=== PATIENT | male | born 1995 | race Caucasian/White ===

== ENCOUNTER 2019-01-03 12:46 | Emergency (ER) | payer BC, OTHER ==
[~2019-01-03] VITALS: Ht 182.9 cm; Wt 249.5 kg
[~2019-01-03 12:46] MED LIST: LISINOPRIL10 MG PO; OMEPRAZOLE40 MG PO
--- OUTSIDE RECORDS SUMMARY | 2019-01-03 12:48 | XMS REPORT | Continuity of Care Document ---
Author Author [facility] Interface Address Unknown Phone Unavailable Problems Problem Status Onset Date Classification Date Reported Comments Source Tachycardia 11/08/2017 Diagnosis 11/08/2017 [facility] Body mass index 40+ - severely obese 11/08/2017 Diagnosis 11/08/2017 [facility] Hypertensive disorder 11/08/2017 Diagnosis 11/08/2017 [facility] Influenza-like symptoms 11/08/2017 Diagnosis 11/08/2017 [facility] Acute bronchitis 11/08/2017 Diagnosis 11/08/2017 [facility] Influenza-like Symptoms 11/08/2017 Problem 11/08/2017 [facility] Body Mass Index 40+ - Severely Obese 11/08/2017 Problem 11/08/2017 [facility] Hypertensive Disorder Problem 11/08/2017 [facility] Asthma Problem 11/08/2017 [facility] Medications Medication Details Route Status Patient Instructions Ordering Provider Order Date Source Azithromycin 250 MG Oral Tablet azithromycin 250 mg tablet Take 2 tablets (500 mg) by oral route once daily for 1 day then 1 tablet (250 mg) by oral route once daily for 4 days Active [facility] benzonatate 200 MG Oral Capsule benzonatate 200 mg capsule Take 1 capsule 3 times a day by oral route as needed. Active [facility] Lisinopril 10 MG Oral Tablet lisinopril 10 mg tablet TAKE ONE (1) TABLET(S) BY MOUTH ONCE A DAY. Active [facility] Prednisone 20 MG Oral Tablet prednisone 20 mg tablet Take 1 tablet twice a day by oral route as directed for 6 days. Active [facility] 200 ACTUAT Albuterol 0.09 MG/ACTUAT Metered Dose Inhaler [ProAir] ProAir HFA 90 mcg/actuation aerosol inhaler Inhale 2 puffs every 4-6 hours by inhalation route as needed. Active [facility] Allergies, Adverse Reactions, Alerts Substance Category Reaction Severity Reaction type Status Date Reported Comments Source Immunizations Immunization Date Given Site Status Last Updated Comments Source Results Order Name Results Value Reference Range Date Interpretation Comments Source Influenza A negative 11/08/2017 [facility] Influenza B negative 11/08/2017 [facility] Vital Signs Vital Sign Value Date Comments Source Diastolic (mm Hg) 85 11/08/2017 [facility] Height 72 11/08/2017 [facility] Systolic (mm Hg) 124 11/08/2017 [facility] Weight 546 11/08/2017 [facility] Encounters Location Location Details Encounter Type Encounter Number Reason For Visit Attending Provider ADM Date DC Date Status Source [place] [id number] Katz, [facility] [address] [facility] [place] [address], Ph. [id number] Megan Katz 11/08/2017 [facility] Procedures Procedure Code Date Perfomer Comments Source Anesth Tympanotomy 97980 [facility] Removal of Adenoids 79005 [facility]
--- OUTSIDE RECORDS SUMMARY | 2019-01-03 12:48 | XMS REPORT | Encounter Summary ---
Author Organization Unknown Address [address] [place] [address] Phone [phone] Care Team Providers Care Interdisciplinary Professor Name Role Phone Diallo Cortes DO 3 [phone] Reason for Visit Medical Complaint Instructions 1. Acute bronchitis bronchitis: care instructions ProAir HFA 90 mcg/actuation aerosol inhaler azithromycin 250 mg tablet prednisone 20 mg tablet benzonatate 200 mg capsule patient follow up phone call 2. Influenza-like symptoms rapid flu (A+B) 3. Hypertensive disorder elevated blood pressure: care instructions 4. Body mass index 40+ - severely obese 5. Tachycardia Discussion Note Pt is in NAD; Verbalizes understanding of all instructions with no questions at this time. Plan of Care Patient Instructions Get clearance from PCP before starting these meds: Take fluticasone as needed for congestion. [place] one spray in each nostril twice a day. Take a warm, steamy shower, blow your nose thereafter, and spray in each nostril. Tilt your head up for about 10 seconds and breath through your mouth. Do not sniff or snort the medication in or else the medication will go to your throat and not be absorbed appropriately. Start Benzonatate for cough. Start ProAir Inhalers 2 puffs every 4-6 hrs as needed for shortness of breath/wheezing. Take Steroids as directed and with food to avoid GI discomfort. Start Azithromycin as directed. Take medications as prescribed and follow up with a PCP within 2-3 if symptoms worsen as discussed. In case of emergency call 911 or go to nearest ER. Recommend monitor BP at home and document, bring BP log to PCP for review. Recommend follow a low sodium/fat/carb diet and exercise as tolerated once symptoms improve. Reminders Provider Appointments None recorded. Lab Rapid Flu (A+B) 11/08/2017 [facility] Referral None recorded. Procedures None recorded. Surgeries None recorded. Imaging None recorded. Medications Name Start Date azithromycin 250 mg tablet Take 2 tablets (500 mg) by oral route once daily for 1 day then 1 tablet (250 mg) by oral route once daily for 4 days benzonatate 200 mg capsule Take 1 capsule 3 times a day by oral route as needed. lisinopril 10 mg tablet TAKE ONE (1) TABLET(S) BY MOUTH ONCE A DAY. prednisone 20 mg tablet Take 1 tablet twice a day by oral route as directed for 6 days. ProAir HFA 90 mcg/actuation aerosol inhaler Inhale 2 puffs every 4-6 hours by inhalation route as needed. Medications Administered None recorded. Vitals Height Weight BMI Blood Pressure 6 ft 546 lbs 74.1 kg/m2 124/85 mm[Hg] Lab Results Date Name Specimen Result Interpretation Description Value Range Status Address Rapid Flu (A+B) Influenza a negative [facility]: [address] [place] [address] Influenza B negative [facility]: [address] [place] [address] Allergies Code Code System Name Reaction Severity Status Onset NKDA Problems Name Status Onset Date Source Influenza-like Symptoms Active 11/08/2017 Body Mass Index 40+ - Severely Obese Active 11/08/2017 Hypertensive Disorder Active Asthma Active Encounter Procedures Date Name Performed by Anesth Tympanotomy Information not available Removal of Adenoids Information not available Vaccine List None recorded. Social History Smoking Status Never Smoker Past Encounters 11/08/2017 Acute Bronchitis; Influenza-like Symptoms; Hypertensive Disorder; Body Mass Index 40+ - Severely Obese; Tachycardia Megan Katz, [facility]-C: [address] [place] [address], Ph. History of Present Illness Cough Reported By: Patient HPI: Location: chest. Quality: productive cough, congested. Duration: ; x 1 week. Severity: moderate. Onset/Timing: gradual. Context: no sick contacts, no foreign travel, non-smoker, asthma; Pt has h/o HTN managed by his PCP. Modifying factors: ; None. Associated Symptoms: no shortness of breath, no wheezing, no sweats, no significant weight gain, no significant weight loss, no morning cough, no sore throat, no vomiting, no diarrhea, no rash, no nausea, no fever/chills, no muscle aches, no headache, yellow-green, thick sputum, fatigue; nasal congestion, sinus pressure, chest congestion and productive cough Review of Systems:ROS as noted in the HPI Review of Systems Basic Reported By: Patient Physical Exam Adult Basic, Adult Female Complete, Adult Male Complete Reported By: Patient Constitutional: General Appearance: healthy-appearing, morbidly obese. Level of Distress: NAD. Ambulation: ambulating normally Psychiatric: Mental Status: active and alert Eyes: Lids and Conjunctivae: non-injected, no discharge, no pallor Zfd-Phjv-Cferg-Throat: Ears: no lesions on external ear, no outer ear tenderness, EACs clear, TMs clear. Hearing: no hearing loss. Nose: no lesions on external nose, nares patent, no septal deviation, nasal passages clear, no sinus tenderness, post nasal drip. Lips, Teeth, and Gums: no mouth or lip ulcers, no bleeding gums, normal dentition. Oropharynx: moist mucous membranes, no erythema, no exudates, tonsils not enlarged Neck: Lymph Nodes: no cervical LAD Lungs: Respiratory effort: no dyspnea, no tachypnea, no use of accessory muscles, no intercostal retractions. Auscultation: breath sounds normal Cardiovascular: Heart Auscultation: no murmurs, tachycardia Neurologic: Gait and Station: normal gait, normal station
[2019-01-03] MEDS ORDERED: HYDROCODONE/APAP 10MG-325MG TAB PO NR (13:00)
[2019-01-03] MEDS ORDERED: ONDANSETRON HCL INJ 2MG/ML 2ML 2 MG/ML VIAL IV STA (14:10)
[2019-01-03] MEDS ORDERED: SODIUM CHLORIDE 0.9% 500ML 500 ML IV STA (14:10)
[2019-01-03] MEDS ORDERED: HYDROMORPHONE 1MG/1ML INJ IV NR (14:30)
--- NOTE | 2019-01-03 14:49 | Diagnostic Imaging Report ---
Exam: Right knee radiographs-3 views; right lower leg radiographs-4 views; right ankle radiographs-3 views Clinical History: Trauma, evaluate for fracture. Comparison: None. Findings: There is a comminuted, obliquely oriented, mildly displaced fracture of the distal fibular shaft. There is a horizontally oriented fracture of the medial malleolus with intra-articular extension. There is widening of the distal syndesmosis. There is angulation at the tibiotalar joint with widening of the medial mortise. There is surrounding soft tissue edema. No evidence of acute fracture or malalignment within the proximal tibia or fibula. No evidence of acute fracture or malalignment within the knee. There is Achilles enthesopathy. Impression: Comminuted fracture of the distal fibular shaft and horizontal fracture of the medial malleolus with widening of the distal syndesmosis. Disruption of the medial ankle mortise as above. Signed by: Dr. Rodger Haile MD on 01/03/2019 2:45 PM
[2019-01-03] MEDS ORDERED: HYDROMORPHONE 2MG/ML 2 MG/ML ML ONE (14:50)
--- NOTE | 2019-01-03 15:12 | Diagnostic Imaging Report ---
EXAMINATION: CHEST SINGLE (PORTABLE) INDICATION: Status post fall. COMPARISON: None FINDINGS: Exam is somewhat limited by soft tissue attenuation and portable technique. TUBES and LINES: None. LUNGS: Lungs are not well inflated. There is no evidence of pneumonia or pulmonary edema. Mild patchy right basilar opacity, likely atelectasis. PLEURA: No pleural effusion or pneumothorax. HEART AND MEDIASTINUM: The cardiomediastinal silhouette is unremarkable. BONES AND SOFT TISSUES: No acute osseous abnormality. UPPER ABDOMEN: No free air under the diaphragm. IMPRESSION: No acute radiographic abnormality. Signed by: Dr. Rodger Haile MD on 01/03/2019 3:09 PM
--- NOTE | 2019-01-03 16:17 | NUR ---
given disc for xray
--- NOTE | 2019-01-03 16:38 | Diagnostic Imaging Report ---
Exam: Right ankle radiographs-2 views Clinical History: Status post reduction. Comparison: None. Findings: Interval reduction. Overlying cast is present. Again noted is a comminuted, obliquely oriented fracture of the distal fibular shaft. There is a horizontally oriented fracture of the medial malleolus with intra-articular extension into the medial mortise. There is surrounding soft tissue edema. There is decreased displacement compared to prior radiograph with decreased widening of the distal syndesmosis. There is a decreased angulation at the tibiotalar joint. Impression: Status post interval casting/reduction of right ankle fractures with improved alignment. Signed by: Dr. Rodger Haile MD on 01/03/2019 4:35 PM
== END 2019-01-03 16:19 | disposition home or self-care (01) ==
LOC: ER 13:07
DX: M25.571 Pain in right ankle and joints of right foot (principal); S82.831A Other fracture of upper and lower end of right fibula, initial encounter for closed fracture; S82.51XA Displaced fracture of medial malleolus of right tibia, initial encounter for closed fracture; W01.0XXA Fall on same level from slipping, tripping and stumbling without subsequent striking against object, initial encounter; Y93.01 Activity, walking, marching and hiking; Y92.008 Other place in unspecified non-institutional (private) residence as the place of occurrence of the external cause; I10 Essential (primary) hypertension; E66.9 Obesity, unspecified
CPT/HCPCS: 27781; 36415; 71045; 73562; 73590; 73600; 73610; 99285; J1170; J2405